=== PATIENT | female | born 1980 | race Caucasian/White ===

== ENCOUNTER 2020-06-17 17:54 | Emergency (ER) | payer OTHER ==
[~2020-06-17] VITALS: Ht 172.7 cm; Wt 88.5 kg
[2020-06-17 18:53] LABS: URINE BILIRUBIN NEGATIVE (Negative); URINE BLOOD NEGATIVE (Negative); URINE CLARITY CLEAR; URINE COLOR YELLOW; URINE GLUCOSE-RANDOM* NEGATIVE (Negative); URINE KETONES NEGATIVE (Negative); URINE LEUKOCYTES-REFLEX NEGATIVE (Negative); URINE NITRITE-REFLEX NEGATIVE (Negative); URINE PROTEIN (DIPSTICK) NEGATIVE (Negative); URINE SPECIFIC GRAVITY >= 1.030 (1.005-1.035); URINE UROBILINOGEN 0.2 E.U./dl (0.2-1.0)
[2020-06-17 18:59] LABS: BASOPHILS 0.5 % (0.0-2.0); EOSINOPHILS 0.9 % (0.0-3.0); HEMATOCRIT 41.8 % (37.0-47.0); HEMOGLOBIN 14.4 gm/dL (12.0-15.0); LYMPHOCYTES 23.3 % (24.0-44.0); MCH 34.5 pg (26.0-34.0); MCHC 34.4 g/dL (28.0-37.0); MCV 100.2 fL (80.0-100.0); MONOCYTES 5.7 % (1.0-8.0); PLATELET COUNT 210 thou/uL (150-400); POLYS 69.6 % (36.0-66.0); RBC 4.17 mil/uL (4.20-5.00); RDW 13.7 % (10.5-14.5); WBC 5.8 thou/uL (4.0-11.0)
[2020-06-17 19:08] LABS: ANION GAP 11 mmol/L (7-16); BUN 9 mg/dL (7-18); CALCIUM 8.9 mg/dL (8.5-10.1); CHLORIDE 98 mmol/L (98-107); CO2 25 mmol/L (21-32); CREATININE 0.7 mg/dL (0.6-1.0); GLUCOSE 94 mg/dL (74-106); POTASSIUM 3.5 mmol/L (3.5-5.1); SODIUM 134 mmol/L (136-145)
[2020-06-17 19:14] LABS: ALBUMIN 3.8 g/dL (3.4-5.0); DIRECT BILIRUBIN < 0.1 mg/dL (<0.1-0.2); SGOT 233 U/L (15-37); SGPT 283 U/L (30-65); TOTAL BILIRUBIN 0.3 mg/dL (0.2-1.0)
[2020-06-17 19:51] VITALS: BP 132/92
== END 2020-06-17 19:52 | disposition home or self-care (01) ==
LOC: ER 17:54
PROVIDERS: Emergency Medicine
DX: G56.31 Lesion of radial nerve, right upper limb (principal)